=== PATIENT | female | born 1975 | race Caucasian/White ===

== ENCOUNTER 2017-10-07 18:12 | Emergency (ER) | payer SELFPAY ==
[~2017-10-07] VITALS: Ht 157.5 cm; Wt 63.0 kg
[~2017-10-07 18:12] MED LIST: Z.0.NO CURRENT MEDS
[2017-10-07 18:19] VITALS: PULSE 66; RESP 18; TEMP 97.3; O2SAT 100
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
[2017-10-07] MEDS ORDERED: KETOROLAC TROMETHAMINE 60 MG/2 ML (IM) VIAL IM ONE (18:45)
[2017-10-07] MEDS ORDERED: ORPHENADRINE INJ 60 MG/2 ML AMP IM ONE (18:45)
[2017-10-07 18:47] LABS: BILIRUBIN, URINE NEG (NEG); BLOOD, URINE LARGE (NEG); GLUCOSE,URINE NEG (NEG); KETONE, URINE NEG (NEG); NITRITE,URINE NEG (NEG); PH, URINE 5.5 (5.0-8.5); URINE COLOR YELLOW (YELLW/STRAW); URINE LEUKOCYTE ESTERASE NEG (NEG)
[2017-10-07 18:53] VITALS: BP 190/88
[2017-10-07 18:53] LABS: BACTERIA, URINE FEW /hpf; SQUAMOUS EPITHELIAL CELL URINE > 8 /hpf (0-5)
[2017-10-07] MEDS ORDERED: DEPO150I IM (18:53)
[2017-10-07] MEDS ORDERED: SUBO2MIS SL (18:53)
--- NOTE | 2017-10-07 19:16 | RADRPT ---
EXAM DATE/TIME: 10/07/2017 18:55 [facility] COMPARISON: No previous studies available for comparison. INDICATIONS : Right flank pain. Nausea and vomiting. ORAL CONTRAST: No oral contrast ingested. RADIATION DOSE: 6.91 CTDIvol (mGy) MEDICAL HISTORY : None SURGICAL HISTORY : None. ENCOUNTER: Initial ACUITY: 1 week PAIN SCALE: 10/10 LOCATION: Right flank TECHNIQUE: Volumetric scanning of the abdomen and pelvis was performed. Using automated exposure control and ad justment of the mA and/or kV according to patient size, radiation dose was kept as low as reasonably achievable to obtain optimal diagnostic quality images. DICOM format image data is available electro nically for review and comparison. FINDINGS: LOWER LUNGS: The visualized lower lungs are clear. LIVER: Decreased density without lesion. There is no dilation of the biliary tree. No calcified gallstones . SPLEEN: Normal size without lesion. PANCREAS: Within normal limits. KIDNEYS: Normal in size and shape. There is no mass, stone, or hydronephrosis on the left. There is mild hydr onephrosis on the right secondary to right UPJ calculus measuring 5-6 mm. Nonobstructing calculus low er pole right kidney measures 2 mm. Minimal adjacent inflammatory changes. ADRENAL GLANDS: Within normal limits. VASCULAR: There is no aortic aneurysm. BOWEL/MESENTERY: The stomach, small bowel, and colon demonstrate no acute abnormality. There is no free intraperitone al air or fluid. ABDOMINAL WALL: Within normal limits. RETROPERITONEUM: There is no lymphadenopathy. BLADDER: No wall thickening or mass. REPRODUCTIVE: Within normal limits. INGUINAL: There is no lymphadenopathy or hernia. MUSCULOSKELETAL: Within normal limits for patient age. CONCLUSION: 1. Mild obstructive uropathy secondary to right UPJ calculus measuring 5-6 mm. 2. Mild nonobstructing right renal calculus. 3. Moderate hepatic steatosis. Asif Hayward MD on October 07, 2017 at 19:09 Board Certified Radiologist. This report was verified electronically.
[2017-10-07] MEDS ORDERED: IBUP-232 PO (19:28)
--- NOTE | 2017-10-07 19:28 | PD ---
Physical Exam Date Seen by Provider: October 07, 2017 Time Seen by Provider: 19:00 Narrative Patient seen and evaluated initially by Dr. Gonzalez, please see previous notes for further details. Here because of right sided abdominal flank pains, blood in the urine, awaiting CAT scan. Laboratory Tests Test 10/07/17 18:30 Urine Occult Blood LARGE (NEG) Urine RBC 20-24 /hpf (0-3) Urine Squamous Epithelial Cells > 8 /hpf (0-5) Urine Bacteria FEW /hpf (NONE) Last 24 hours Impressions Abdomen/Pelvis CT 10/07/17 1838 Signed Impressions: Service Date/Time: September 18:55 - CONCLUSION: 1. Mild obstructive uropathy secondary to right UPJ calculus measuring 5-6 mm. 2. Mild nonobstructing right renal calculus. 3. Moderate hepatic steatosis. Asif Hayward MD CAT scan shows mild obstructive uropathy with a calculus of 5-6 mm at the right UPJ. She had been given Toradol in the ER and is currently appearing more comfortable. Vital signs are stable. She is afebrile. At this point, case was discussed with Dr. López who states that the patient can follow-up in his clinic tomorrow. Further pain relief. Return for any worsening in symptoms as necessary. The plan has been discussed with her and she states understanding. Data Data Last Documented VS Vital Signs Date Time Temp Pulse Resp B/P (MAP) Pulse Ox O2 Delivery O2 Flow Rate FiO2 10/07/17 18:53 190/88 (122) 10/07/17 18:19 97.3 66 18 100 Orders Orders Urinalysis - C+S If Indicated (10/07/17 18:19) Ed Urine Pregnancytest Poc (10/07/17 18:19) Ct Abd/Pel W/O Iv Contrast (10/07/17 18:38) Ketorolac Inj (Toradol Inj) (10/07/17 18:45) Orphenadrine Inj (Norflex Inj) (10/07/17 18:45) Ed Discharge Order (10/07/17 19:25) Labs Laboratory Tests Test 10/07/17 18:30 Urine Color YELLOW Urine Turbidity CLEAR Urine pH 5.5 Urine Specific [place] 1.025 Urine Protein TRACE mg/dL Urine Glucose (UA) NEG mg/dL Urine Ketones NEG mg/dL Urine Occult Blood LARGE Urine Nitrite NEG Urine Bilirubin NEG Urine Urobilinogen 0.2 MG/DL Urine Leukocyte Esterase NEG Urine RBC 20-24 /hpf Urine WBC 3-5 /hpf Urine Squamous Epithelial Cells > 8 /hpf Urine Bacteria FEW /hpf Microscopic Urinalysis Comment CULT NOT INDICATED MDM Medical Record Reviewed: Yes Supervised Visit with MARILYNN: No Diagnosis Primary Impression: Renal colic on right side Referrals: Andrea Melgar MD 1 day Med/Other Pt SpecificInfo: Prescription(s) given Scripts Ibuprofen (Ibuprofen) 600 Mg Tab 600 MG PO Q6H Y for Pain/Inflammation, #20 TAB 0 Refills Prov: Robina Murillo MD 10/07/17 Disposition: 01 DISCHARGE HOME Condition: Stable Robina Murillo MD October 07, 2017 19:28
[2017-10-07 19:33] VITALS: BP 172/109; PULSE 86; RESP 16; O2SAT 97
[2017-10-07] MEDS ORDERED: ACETAMINOPHEN 325 MG TAB PO ONE (19:45)
[2017-10-07] MEDS ORDERED: ONDANSETRON HCL 4 MG/2 ML VIAL IV PUSH ONE (19:45)
== END 2017-10-07 19:55 | disposition home or self-care (01) ==
LOC: PHED 18:12
DX: N13.9 Obstructive and reflux uropathy, unspecified (principal); N20.0 Calculus of kidney; K76.0 Fatty (change of) liver, not elsewhere classified; Z87.891 Personal history of nicotine dependence; Z88.2 Allergy status to sulfonamides; Z88.8 Allergy status to other drugs, medicaments and biological substances
CPT/HCPCS: 74176; 81001; 84703; 96372; 96374; 99284; J1885; J2360; J2405; 90472